=== PATIENT | male | born 1955 | race Caucasian/White ===

== ENCOUNTER 2020-03-19 10:58 | Outpatient (CLI) | payer OTHER, SELFPAY ==
--- NOTE | ~2020-03-19 | XR_ITS ---
XR shoulder LT min 2V 03/19/2020 11:43 Indication: Shoulder pain Procedure: 4 views left shoulder Comparison: No prior studies for comparison. Findings: No acute fracture or traumatic malalignment. There is ossification superior to the humeral head, consistent with calcific tendinopathy. There is a small loose body inferior to the glenohumeral joint space. Visualized lung parenchyma is unremarkable. Impression: 1: No acute bone or joint abnormality. 2: Calcific tendinopathy. Reviewed, dictated and finalized at location A. Impression: 1: No acute bone or joint abnormality. 2: Calcific tendinopathy.
== END 2020-03-19 10:59 | disposition home or self-care (01) ==
LOC: CHSIMG 11:00
PROVIDERS: PCP Nurse Practitioner Family; Visit Provider Nurse Practitioner Family
DX: M25.512 Pain in left shoulder (principal)
CPT/HCPCS: 73030

== ENCOUNTER 2020-03-21 07:58 | Outpatient (RCR) | payer OTHER, SELFPAY ==
[2020-03-21 08:15] VITALS: BP_SYST 45
--- NOTE | 2020-03-21 09:38 | PTOPEVAL ---
Thank you for referring Arsen Grady to [facility]. Please review, sign, date and return this plan of care [facility]. I agree with and certify that the following plan of care is medically necessary. Referring Physician Date Admitting Provider: Attending Provider: Lianne Edwards NP Referring Provider: MARIANO Outpatient Evaluation Start: 03/21/20 08:09 Freq: Status: Active Protocol: Document 03/21/20 08:15 J (Rec: 03/21/20 09:14 [facility] [id number]) Therapy Assessment Status Assessment Status Assessment Status Evaluation Evaluation Information Problem Diagnosis calcific tendonitis of the L shoulder Onset 03/16/20 Additional Evaluation Detail quick dash = 63% Subjective Information patient reports he has been Query Text:As Reported By Patient/ having pain in the L shoulder Family since last thursday. he reports he injured his shoulder that day. he reports he was locked out of his house and tried to knock open the door with his R shoulder. he reports he does have a history of pain in the L shoulder that has been off and on for years. he reports the pain is worse now than ever. he reports he has decreased rom, increased pain (in any position), and decreased funcitonal use. he reports he did not get to the MD for a few days. he reports he is having difficulty managing his pain. he reports he did have an injection on thursday. he reports the shot has already worn off. he reports he now is taking tramadol prescription. Prior Level of Function Comments Additional Prior Level of Function patient is otherwise active. 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 Pain Assessment Timing of Pain Assessment Timing of Pain Assessment Assessment Pain Scale Pain Scale Used Numeric (1 - 10) Self Report Pain Assessment Left Shoulder(s) Reported Pain Level 3 Pain Description Soreness,Tender on Palpation Pain Frequency
--- NOTE | 2020-04-20 10:09 | PTOPEVAL ---
Thank you for referring Arsen Grady to [facility]. Please review, sign, date and return this plan of care [facility]. I agree with and certify that the following plan of care is medically necessary. Referring Physician Date Admitting Provider: Attending Provider: Lianne Edwards NP Referring Provider: *PT Outpatient Evaluation Start: 03/21/20 08:09 Freq: Status: Active Protocol: Document 04/20/20 09:00 [facility] (Rec: 04/20/20 10:04 [facility] [email or web address]) Therapy Assessment Status Assessment Status Assessment Status Re-evaluation Evaluation Information Problem Diagnosis L shoulder calcific tendonitis Additional Evaluation Detail quick dash = 9% Subjective Information patient reports he is feelign Query Text:As Reported By Patient/ much better this date. he Family reports he still has pain from time to time, but reports this pain is mild. he reports improved mobility and strength , but still a bit of weakness with rotation to his side and reaching/lifting overhead/to the side. Pain Assessment Timing of Pain Assessment Timing of Pain Assessment Assessment Pain Scale Pain Scale Used Numeric (1 - 10) Self Report Pain Assessment Left Shoulder(s) Reported Pain Level 1 Lowest Pain Intensity 0 Greatest Pain Intensity 3 Pain Score Pain Score 1: Self Report Upper Extremity Range of Motion Scapular/ Shoulder Range of Motion Left Shoulder Flexion - Active 150 Shoulder Flexion - Passive 160 Shoulder Medial Rotation - Active 70 Shoulder Lateral Rotation - Active 75 Shoulder Lateral Rotation - Passive 85 Upper Extremity Muscle Strength Testing Scapular/Shoulder Left Shoulder Flexion Strength 4+ Good + Shoulder Extension Strength 5 Normal Shoulder Abduction Strength 4+ Good + Shoulder Medial Rotation Strength 5 Normal Shoulder Lateral Rotation Strength 4+ Good + Shoulder Strength Comments 5/5 L elbow strength 5/5 overall R UE strength Palpation Assessment Palpation Palpation mild tenderness to palpation of the anterior L shoulder girdle along the long head tendon of the biceps. PT Clinical Summary Clinical Summary Protocol: PTEVCODE PT Clinical Summary mr. grady tolerates therapy well this date. he presents on his 12th skilled PT visit with much improve rom,
== END 2020-05-16 09:20 | disposition home or self-care (01) ==
LOC: CHSPT 07:58
PROVIDERS: PCP Nurse Practitioner Family; Visit Provider Nurse Practitioner Family
DX: M75.32 Calcific tendinitis of left shoulder (principal)
CPT/HCPCS: 97014; 97110; 97140; 97161; 97530; G0283

== ENCOUNTER 2021-10-21 08:34 | Outpatient (CLI) | payer OTHER, SELFPAY ==
[2021-10-21 08:52] LABS: Hematocrit 51.9 % (40.0-54.0); Hemoglobin 16.7 g/dL (14.0-18.0); Mean Corpuscular HGB Conc 32.2 g/dL (32.0-36.0); Mean Corpuscular Hemoglobin 29.3 pg (27.0-31.0); Mean Corpuscular Volume 91.2 fL (78.0-102.0); Mean Platelet Volume 9.4 fl (8.7-11.0); Platelet Count Result 208 K/mm3 (150-420); Red Blood Count 5.69 M/mm3 (4.70-6.10); Red Cell Distribution Width 12.2 % (11.6-14.4); White Blood Count 4.8 K/mm3 (4.8-10.8)
[2021-10-21 10:09] LABS: Alanine Aminotransferase 34 U/L (16-63); Albumin Level 3.8 g/dL (3.4-5.0); Alkaline Phosphatase 57 U/L (46-116); Anion Gap 7 mmol/L (8-16); Aspartate Amino Transferase 17 U/L (15-37); Bilirubin,Total 0.6 mg/dL (0.00-1.00); Blood Urea Nitrogen 17 mg/dL (7-18); Calcium 8.7 mg/dL (8.5-10.1); Carbon Dioxide 30 mmol/L (21-32); Chloride 106 mmol/L (98-108); Estimated Glomerular Filt Rate > 60; Glucose 99 mg/dL (70-99); Osmolality Calculated 297 mOsm/kg (285-295); Potassium 4.8 mmol/L (3.5-5.1); Prostate Specific Antigen 1.3 ng/mL (< OR = 4.0); Sodium 143 mmol/L (136-145); Total Protein 7.1 g/dL (6.4-8.2)
[2021-10-21 10:17] LABS: CRP < 0.5 mg/dL (0.0-0.9)
[2021-10-21 10:53] LABS: Add Urine Microscopic? NO; Appearance Urine Clear (Clear); Bilirubin Urine Negative (Negative); Blood Urine Negative (Negative); Color Urine Light Yellow (Yellow); Glucose Urine UA Negative (Negative); Ketones Urine Negative (Negative); Leukocyte Esterase Ur Negative (Negative); Nitrate Urine Negative (Negative); Protein Urine Negative (Negative); Specific Grav Ur 1.025 (1.010-1.020); Urobilinogen Urine 0.2 mg/dL (0.2-1.0); pH Urine 5.5 (5.0-8.0)
[2021-10-21 12:14] LABS: Erythrocyte Sedimentation Rate 10 mm/hr (0-20)
== END 2021-10-21 08:35 | disposition home or self-care (01) ==
LOC: CHSLAB 08:37
PROVIDERS: PCP Family Medicine; Visit Provider Family Medicine
DX: N41.1 Chronic prostatitis (principal); R35.1 Nocturia
CPT/HCPCS: 36415; 80053; 81003; 84153; 85027; 85652; 86140; G0103

== ENCOUNTER 2022-01-21 08:02 | Outpatient (CLI) | payer MEDICARE, SELFPAY ==
--- NOTE | ~2022-01-21 | MR_ITS ---
EXAMINATION: MR humerus RT wo con DATE: 01/21/2022 09:08 INDICATION: Distal right humeral pain 3 weeks post injury while lifting a box. TECHNIQUE: Magnetic resonance imaging (MRI) of the right humerus was performed without intravenous co ntrast. Sequences included axial T1-weighted FSE, axial T2-weighted FS FSE, coronal T1-weighted FSE, coronal T2-weighted FS FSE, sagittal T1-weighted FSE and sagittal T2-weighted FS FSE. COMPARISON: None. FINDINGS: Complete tear of the distal biceps brachii tendon. The torn tendon is retracted and folded back upon itself surrounded by small amount of fluid at the distal upper arm. The tear margin is approximately 9 cm proximal to the region of the radial tuberosity insertion which is not clearly visualized due to distortion and magnetic field artifact at the margin of the field of imaging. Minimal reactive edema in the distal biceps brachii muscle. Remainder of the visualized musculature of the upper arm and sh oulder girdle appears normal. The joints at the shoulder and elbow RT margin of the field of imaging and not diagnostically evaluated. Visualized bone marrow signal is normal. There are a few normal axi llary lymph nodes with prominent central fatty christiano. IMPRESSION: 1. Complete tear and proximal retraction of the distal biceps brachii tendon. Reviewed, dictated and finalized at location A. ANALYST
== END 2022-01-21 08:03 | disposition home or self-care (01) ==
LOC: CHSIMG 08:03
PROVIDERS: PCP Family Medicine; Visit Provider Nurse Practitioner Family
DX: M25.521 Pain in right elbow (principal); T14.8XXA Other injury of unspecified body region, initial encounter
CPT/HCPCS: 73218

== ENCOUNTER 2022-01-27 09:43 | Outpatient (CLI) | payer MEDICARE, SELFPAY ==
--- NOTE | ~2022-01-27 | XR_ITS ---
EXAMINATION: XR elbow RT min 3V DATE: 01/27/2022 10:01 INDICATION: Right elbow pain. TECHNIQUE: 4 views of right elbow were obtained. COMPARISON: None. FINDINGS: Bone alignment is normal. No fracture. There is mild elbow joint osteoarthritis. There are enthesophytes at the medial lateral humeral epicondyles. No elbow joint effusion. IMPRESSION: 1. Mild elbow joint osteoarthritis. Reviewed, dictated and finalized at location A.
== END 2022-01-27 09:44 | disposition home or self-care (01) ==
LOC: CHSIMG 09:44
PROVIDERS: PCP Family Medicine; Visit Provider Orthopaedic Surgery
DX: M25.521 Pain in right elbow (principal)
CPT/HCPCS: 73080